=== PATIENT | female | born 1995 | race Caucasian/White ===

== ENCOUNTER 2018-07-20 20:31 | Emergency (ER) | payer MEDICAID, OTHER ==
[~2018-07-20] VITALS: Ht 152.4 cm; Wt 107.0 kg
[~2018-07-20 20:31] MED LIST: DOCU240C31 PO; IBUP-1222 PO; OXYC-302 PO
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
--- NOTE | 2018-07-20 21:05 | NUR ---
SBAR report received from barbara MIRELES.
[2018-07-20] MEDS ORDERED: CLOMIPRAMINE PO (21:15)
[2018-07-20] MEDS ORDERED: LEVOTHYROXINE PO (21:15)
[2018-07-20] MEDS ORDERED: TOPAMAX PO (21:15)
[2018-07-20 21:22] LABS: AMPHETAMINE SCREEN, URINE Negative (Negative); BARBITURATE SCREEN, URINE Negative (Negative); BENZODIAZEPINE SCREEN, URINE Negative (Negative); CANNABINOID SCREEN, URINE Positive (Negative); COCAINE SCREEN, URINE Negative (Negative); METHADONE SCREEN, URINE Negative (Negative); OPIATE SCREEN, URINE Negative (Negative)
[2018-07-20 21:36] LABS: BASOPHILS # (AUTO) 0.04 x10^3/uL (0-0.1); BASOPHILS % (AUTO) 0 % (0-1); EOSINOPHILS # (AUTO) 0.49 x10^3/uL (0-0.4); EOSINOPHILS % (AUTO) 4 % (1-7); LYMPHOCYTES # (AUTO) 2.39 x10^3/uL (1-3.4); LYMPHOCYTES % (AUTO) 20 % (22-44); MD NO; MEAN CORPUSCULAR HEMOGLOBIN 30.8 pg (27.0-34.8); MEAN CORPUSCULAR HGB CONC 34.3 g/dL (32.4-35.8); MEAN PLATELET VOLUME 9.6 fL (7.4-10.4); MONOCYTES # (AUTO) 0.54 x10^3/uL (0.2-0.8); MONOCYTES % (AUTO) 5 % (2-9); NEUTROPHILS % (AUTO) 71 % (42-75); PLATELET COUNT 191 x10^3/uL (130-400); RED BLOOD COUNT 4.85 x10^6/uL (3.82-5.3); RED CELL DISTRIBUTION WIDTH 14.2 % (9.6-15.2)
--- NOTE | 2018-07-20 21:38 | NUR ---
TELEPSYCH CONSULT INITIATED.
--- NOTE | 2018-07-20 21:45 | NUR ---
Pt provided meal.
[2018-07-20 21:47] LABS: ANION GAP 5 mmol/L (5-15); CALCIUM 8.9 mg/dL (8.5-10.1); CHLORIDE 112 mmol/L (98-107); CREATININE 0.88 mg/dL (0.55-1.02); SALICYLATE LEVEL < 1.7 mg/dL (2.8-20.0)
[2018-07-20 21:49] LABS: ACETAMINOPHEN < 2 mcg/mL (10-30)
--- NOTE | 2018-07-20 22:12 | NUR ---
SOC Dr. Goodwin updated on pt condition and circumstances of arriving to ED.
--- NOTE | 2018-07-20 23:16 | NUR ---
Lis AKHTAR, at bedside to discuss ED findings and d/c information.
--- NOTE | 2018-07-21 00:22 | NUR ---
Patient/Caregiver given discharge instructions and they have confirmed that they understand the instructions. Patient ambulatory with steady gait.
[2018-07-21 00:23] VITALS: BP 124/67
== END 2018-07-21 00:24 | disposition home or self-care (01) ==
LOC: ED 22:22
DX: F41.1 Generalized anxiety disorder (principal); F43.20 Adjustment disorder, unspecified
CPT/HCPCS: 36415; 80048; 80307; 80329; 82040; 84703; 85025; 99283; G0480